=== PATIENT | male | born 1950 | race Caucasian/White ===

== ENCOUNTER → 2017-07-21 | Outpatient (REF) | payer MEDICARE, BC ==
[2017-07-21 17:33] LABS: CREATININE FOR GFR 0.87 MG/DL (0.70-1.30); GLOMERULAR FILTRATION RATE > 60.0 (>49)
[2017-07-21 17:33] LABS: BLOOD UREA NITROGEN 29 MG/DL (7-18)
== END ==
LOC: M LAB REF 16:42
DX: R09.02 Hypoxemia (principal)
CPT/HCPCS: 82565

== ENCOUNTER → 2017-07-29 | Outpatient (CLI) | payer MEDICARE, BC ==
[~2017-07-29] MED LIST: ISOVUE-370 76% 100ML VIAL (Q9967) As Ordered
== END ==
LOC: M RAD 09:11
DX: R09.02 Hypoxemia (principal)
CPT/HCPCS: Q9967

== ENCOUNTER → 2017-10-13 | Outpatient (REF) | payer MEDICARE, BC ==
[2017-10-13 15:19] LABS: RETIC HEMOGLOBIN EQUIVALENT 34.7 pg (24-36); RETICULOCYTE # 85.2 10^9/L (17-77)
[2017-10-13 15:21] LABS: SLIDE REVIEW Report; SOURCE PERIPHERAL SMEAR
[2017-10-21 00:06] LABS: ERYTHROPOIETIN 11.3 mIU/mL (2.6-18.5); HEMOGLOBIN A 80.3 % (96.4-98.8); HEMOGLOBIN A2 2.2 % (1.8-3.2); HEMOGLOBIN VARIANT 17.5 % (0.0); HGB SOLUBILITY Negative (Negative)
[2017-10-21 07:23] LABS: BPGM Gene Sequencing Result SEE SEPARATE REPORT
[2017-10-21 07:23] LABS: OXYGEN DISSOCIATION P50 30 MM HG (24-30)
== END ==
LOC: M ONCM 13:25
DX: R09.02 Hypoxemia (principal); D64.9 Anemia, unspecified
CPT/HCPCS: 83021

== ENCOUNTER → 2017-11-16 | Outpatient (REF) | payer MEDICARE, BC ==
[2017-11-16 15:05] LABS: MISCELLANEOUS TEST LAB See Separate Report
== END ==
LOC: M LAB REF 15:01
DX: D56.9 Thalassemia, unspecified (principal); D58.2 Other hemoglobinopathies